=== PATIENT | female | born 2000 | race Two or more races ===

== ENCOUNTER 2024-09-27 22:24 | Inpatient (IN) | payer OTHER ==
[~2024-09-27] VITALS: Ht 162.6 cm; Wt 3.6 kg
[2024-09-27 22:22] VITALS: BP 126/74
[2024-09-27] MEDS ORDERED: MISOPROSTOL 25 MCG TABLET VAG STA (22:44)
[2024-09-27] MEDS ORDERED: RINGERS SOLUTION,LACTATED 1,000 ML IV SCH (22:45)
[2024-09-27] MEDS ORDERED: MEPERIDINE HCL/PF 50 MG/ML VIAL IV PRN (22:45)
[2024-09-27] MEDS ORDERED: PROMETHAZINE HCL 25 MG/ML AMPUL IV PRN (22:45)
[2024-09-27 23:16] LABS: PH,URINE 5.5 (5.0-8.0); URINE APPEARANCE Clear; URINE BILIRRUBIN Negative (NEGATIVE); URINE BLOOD Negative; URINE COLOR Yellow; URINE GLUCOSE Negative (NEGATIVE); URINE KETONE Trace (NEGATIVE); URINE LEUKOCYTE Negative; URINE NITRATE Negative; URINE PROTEIN Trace (NEGATIVE); URINE UROBILINOGEN 0.2 E.U./dl
[2024-09-27 23:16] LABS: HEMATOCRIT 39.1 % (36.0-45.00); HEMOGLOBIN 13.7 g/dL (12.0-15.00); MEAN CELL VOLUME 85.8 fL (80.00-100.00); MEAN CORPUSCULAR HEMOGLOBIN 30.1 pg (27.00-32.0); MEAN CORPUSCULAR HGB CONC 35.1 g/dl (32.0-36.0); PLATELET COUNT 161 K/uL (150-450); RED BLOOD COUNT 4.55 M/uL (4.00-6.00); RED CELL DISTRIBUTION WIDTH 13.3 % (11.5-14.5)
[2024-09-27 23:20] LABS: URINE BACTERIA 57.9 uL (0.0-1933); URINE EPITHELIAL CELLS 14.6 uL (0.0-38.8); URINE RBC 19.5 uL (0.0-20.8); URINE WBC 17.2 uL (0.0-23.2)
[2024-09-27 23:27] LABS: URINE CAST 0.15 uL (0.0-1.40)
[2024-09-27 23:30] LABS: INR < 0.93; PARTIAL THROMBOPLASTIN TIME 28.8 SECONDS (22.0-34.0); PROTHROMBIN TIME 10.1 SECONDS (9.0-11.5)
[2024-09-27 23:37] VITALS: BP 126/74
[2024-09-28 03:37] VITALS: BP 137/72
[2024-09-28] MEDS ORDERED: AMPICILLIN SODIUM 2,000 MG VIAL IV ONE (06:15)
[2024-09-28 08:13] VITALS: BP 133/81
[2024-09-28] MEDS ORDERED: AMPICILLIN SODIUM 1,000 MG VIAL IV SCH (09:00)
[2024-09-28] MEDS ORDERED: KETOROLAC TROMETHAMINE 60 MG VIAL IM STA (12:32)
[2024-09-28] MEDS ORDERED: RINGERS SOLUTION,LACTATED 1,000 ML IV SCH (12:45)
[2024-09-28] MEDS ORDERED: CHLORHEXIDINE GLUCONATE 120 ML BOTTLE TP SCH (12:45)
[2024-09-28] MEDS ORDERED: MEPERIDINE HCL/PF 50 MG/ML VIAL IM PRN (12:45)
[2024-09-28] MEDS ORDERED: OXYTOCIN 1,000 ML IV SCH (12:45)
[2024-09-28] MEDS ORDERED: PROMETHAZINE HCL 25 MG/ML AMPUL IM PRN (12:45)
[2024-09-28 16:51] VITALS: BP 113/74
[2024-09-28 18:26] LABS: HEMOGLOBIN 13.2 g/dL (12.0-15.00); MEAN CELL VOLUME 85.7 fL (80.00-100.00); MEAN CORPUSCULAR HEMOGLOBIN 29.7 pg (27.00-32.0); MEAN CORPUSCULAR HGB CONC 34.6 g/dl (32.0-36.0); PLATELET COUNT 148 K/uL (150-450); RED BLOOD COUNT 4.44 M/uL (4.00-6.00); RED CELL DISTRIBUTION WIDTH 13.3 % (11.5-14.5)
[2024-09-29 01:00] VITALS: BP 108/66
[2024-09-29 08:00] VITALS: BP 99/64
[2024-09-29] MEDS ORDERED: OxyCODONE HCL/APAP UD (PERCOCET) PO PRN (09:00)
[2024-09-29 16:31] VITALS: BP 104/70
[2024-09-29 21:09] VITALS: BP 106/72
[2024-09-30] VITALS: BP 95/65
[2024-09-30 04:00] VITALS: BP 103/63
[2024-09-30 08:27] VITALS: BP 127/86
[2024-09-30 16:31] VITALS: BP 126/83
[2024-10-01] MEDS ORDERED: OXYTOCIN 10 UNITS/ML VIAL IV ONE (12:45)
[2024-10-01] MEDS ORDERED: ERYTHROMYCIN BASE OPHT 1GM EACH TUBE OP ONE (12:45)
== END 2024-09-30 17:14 | disposition home or self-care (01) | DRG 788 ==
LOC: OB/GYN 22:24 → LDR 22:24 → OB/GYN 09-28 13:01
PROVIDERS: ADMIT Obstetrics & Gynecology; ATTEND Obstetrics & Gynecology
PROC: 3E0P7VZ Introduction of Hormone into Female Reproductive, Via Natural or Artificial Opening (ICD-10-PCS; 2024-09-27)
PROC: 4A1HXCZ Monitoring of Products of Conception, Cardiac Rate, External Approach (ICD-10-PCS; 2024-09-27)
PROC: 3E033VJ Introduction of Other Hormone into Peripheral Vein, Percutaneous Approach (ICD-10-PCS; 2024-09-28)
PROC: 10D00Z1 Extraction of Products of Conception, Low, Open Approach (ICD-10-PCS; principal; 2024-09-28 13:00)
DX: O42.02 Full-term premature rupture of membranes, onset of labor within 24 hours of rupture (principal); O99.824 Streptococcus B carrier state complicating childbirth; Z3A.39 39 weeks gestation of pregnancy; Z37.0 Single live birth; Z20.822 Contact with and (suspected) exposure to COVID-19